=== PATIENT | female | born 1950 | race Caucasian/White ===

== ENCOUNTER 2017-12-15 05:05 | Inpatient (IN) | payer MEDICARE, BC ==
[2017-12-12 10:06] LABS: INR 1.22 (0.85-1.17)
[2017-12-12 10:07] LABS: APTT 38.8 SECONDS (22.8-39.4)
[2017-12-12 10:09] LABS: HEMATOCRIT 24.8 % (36.0-48.0); HEMOGLOBIN 6.8 g/dL (12-16); MCH 26.9 pg (26.0-34.0); MCHC 27.4 g/dL (31.0-37.0); RBC 2.53 10x6/uL (4.00-5.40); RDW 26.3 % (11.5-14.5)
[2017-12-12 10:10] LABS: PLATELET COUNT 42 10x3/uL (130-400)
[2017-12-12 12:09] LABS: NEUTROPHILS 17 % (40-80); PLATELET ESTIMATE DECREASED
[2017-12-12 12:10] LABS: BASOPHILS 1 % (0-2); EOSINOPHILS 8 % (0-7)
[2017-12-12 12:19] LABS: WBC 185.4 10x3/uL (4.8-10.8)
[~2017-12-15] VITALS: Ht 170.2 cm; Wt 104.1 kg
[2017-12-15] VITALS (20 sets, daily range): BP systolic 110–147; BP diastolic 63–98; BMI 22.3
--- NOTE | ~2017-12-15 | CN ---
PATIENT NAME:ALLI MORRIS MEDICAL RECORD: [id number] : 48 LOCATION:[facility].2307 ADMIT DATE: 12/15/17 ACCOUNT: [id number] CONSULTING PHYSICIAN: ROSANA MURPHY MD REFERRING PHYSICIAN: MISSY SANABRIA MD DATE OF CONSULTATION: 12/23/2017 HISTORY: Ms. Morris is a 67-year-old female in ICU, intubated for several days, who called me to see her for tongue swelling. PHYSICAL EXAMINATION: GENERAL: She is intubated and sedated. HEENT: Her face is normal symmetric, no edema. Her tongue sticking out. She is intubated orotracheally and tongue protruding slightly and looks enlarged. NECK: Has no masses, no adenopathy. On exam of the oral cavity, when you look she has not really biting down hard, but her tongue is protruding slightly and her tongue and the ET tube and upper teeth are pressing against her tongue causing edema of the tip of the tongue, but looking in the mouth, floor of the mouth, roof of the mouth, mucosal surfaces all looked normal. The body of her tongue and oral cavity and the base of the tongue is normal, both visually and to palpation. She just have some distal edema of the tip of the tongue from extruding it slightly and slight pressure from her upper and lower teeth just where her tongue is resting. There is no hematoma or significant problem that would suggest angioedema or some other tongue problem, it does not look like it is going to interfere with her airway and possibly when she is extubated. There was more room for tongue and oral cavity can rest behind her teeth. I would not recommend anything other than keeping the tongue moist and just try to physically going to adjust her biting her tongue occasionally. I did that and it stayed in her mouth behind upper teeth for some time. TRANSINT:[id number] Voice Confirmation ID: [id number] DOCUMENT ID: [id number] ROSANA MURPHY MD at 1357 CC: [id number] DICTATION DATE: 12/23/17 1516 DYER ASSISTANT: 12/23/17 1556 DIS IN 12/23/17 [id number] [place] [address]
--- NOTE | ~2017-12-15 | CN ---
PATIENT NAME:ALLI MORRIS MEDICAL RECORD: [id number] : 48 LOCATION:[facility]7 ADMIT DATE: 12/15/17 ACCOUNT: [id number] CONSULTING PHYSICIAN: MARIA LUISA ARITA MD REFERRING PHYSICIAN: MISSY SANABRIA MD DATE OF CONSULTATION: 12/18/2017 HISTORY OF PRESENT ILLNESS: A 67-year-old female with no known cardiovascular history, admitted for splenectomy. 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 Postoperatively, she has been intubated, on a ventilator. Chest x-ray showed diffuse reticular nodular pattern. Echocardiographic study subsequently showed LV function mildly reduced at 40% to 45%, somewhat tachycardic, and anemic. We are seeing concerning cardiovascular status. PAST MEDICAL HISTORY: Includes a history of myelodysplasia. ALLERGIES: CELEBREX. MEDICATIONS: Prior to admission included amoxicillin 500 t.i.d., methotrexate 15 ____ Friday, Jakafi 5 mg b.i.d., ____ q.h.s. SOCIAL HISTORY: Unobtainable due to the patient factors. REVIEW OF SYSTEMS: Unobtainable due to the patient factors. PHYSICAL EXAMINATION: GENERAL: Intubated and sedated, no acute distress. VITAL SIGNS: Pulse currently 110, blood pressure 112/62. HEENT: Normocephalic, atraumatic. NECK: No bruits noted. HEART: Tachycardic. I do not hear a gallop. LUNGS: Actually fairly good air excursion at this point. ABDOMEN: Soft, nontender. EXTREMITIES: There are 1+ pulses, pulses 2+ edema. DIAGNOSTIC DATA: ECG prior to surgery showed low voltage, no acute changes. IMPRESSION: Cardiomyopathy with EF 40%, multifactorial, could be secondary to current stressors, would not use Dobutrex at this point secondary to underlying tachycardia and possibly to exacerbate tachyarrhythmias. We will add low dose digoxin IV. Significant third spacing, a part of this again secondary to anemia, hypoalbuminemia. Thank you for the consultation. We will follow with you. TRANSINT:[id number] Voice Confirmation ID: [id number] DOCUMENT ID: [id number] CONSULT REPORT [id number] DARRENMARK MENAMARIA LUISA ARANDA MD at 1132 CC: [id number] DICTATION DATE: 12/18/17 1434 BLUNGER: 12/18/178 ADM IN [facility] [address] [id number]
--- NOTE | ~2017-12-15 | EC ---
PATIENT:ALLI MORRIS DATE OF SERVICE: 12/15/17 SEX: F MEDICAL RECORD: [id number] DATE OF : 48 LOCATION:[facility] D.230 AGE OF PATIENT: 67 ADMISSION DATE: 12/15/17 REFERRING PHYSICIAN: INTERPRETING PHYSICIAN: MINH SMART MD ECHOCARDIOGRAM REPORT ECHO CHARGES 4 ECHO COMPLETE Date: 12/17 CLINICAL DIAGNOSIS: ECHOCARDIOGRAPHIC MEASUREMENTS (adult normal given) AC root (d.<3.7cm) 3.0 cm LV Septum d (<1.2 cm> 0.6 cm Valve Excursion 1.8 cm LV Septum (systole) 1.1 cm Left Atria (s.<4.0cm> 3.3 cm LVPW d(<1.2cm) 0.8 cm RV (d.<2.3cm) 2.2 cm LVPW (sytole) 1.6 cm LV diastole(<5.6CM) 5.5 cm MV E-F(>70mm/sec) cm LV systole 3.4 cm LVOT Diameter 1.9 cm MV exc.(>10mm) cm Est.ejection fraction (50-75%) % DOPPLER: LVIT cm/sec A 84.0 cm/sec E 96.0 cm/sec LA cm/sec RVSP 44.4 mmHg LVOT 157 cm/sec AOP1/2T m/s Asc. Ao 203 cm/sec RVOT 83.0 cm/sec RA cm/sec PA 129 cm/sec AV Gradient Peak 17.0 mmHg AV Mean 8.5 mmHg AV Area 2.1 cm MV Gradient Peak 4.2 mmHg MV Mean 2.0 mmHg MV Area cm COMMENTS: Right Of Way Supervisor: 1 MANN ZIMMEROE Concrete Carpenter: 1 Dr. Smart TAPE# PACS Pericardial Effusion N DATE OF SERVICE: FINDINGS: 1. Left ventricular chamber size is within normal limits. Left ventricular systolic function is mildly depressed. Overall ejection fraction 40%. 2. Left atrium, right atrium, and right ventricular chamber sizes are within normal limits. 3. Valvular structures have normal structure and motion. 4. Doppler interrogation only reveals trace tricuspid regurgitation. No other valvular insufficiency or stenosis. Pulmonary systolic pressure is estimated 44 ECHOCARDIOGRAM REPORT [id number] ALLI MORRIS mmHg. 5. No evidence of pericardial effusion or left ventricular thrombus. TRANSINT:[id number] Voice Confirmation ID: [id number] DOCUMENT ID: [id number] MINH SMART MD at 0956 CC: [id number] DICTATION DATE: 12/17/17 1215 PRELOAD SUPERVISOR: 12/17/17 1430 ADM IN [id number] [address] [id number]
--- NOTE | ~2017-12-15 | OP ---
PATIENT NAME: ALIL MORRIS MEDICAL RECORD: [id number] :48 LOCATION:[facility] D.2307 ADMISSION DATE:12/15/17 SURGEON: MISSY SANABRIA MD DATE OF OPERATION: 12/15/2017 PREOPERATIVE DIAGNOSES: Myelodysplastic syndrome with splenomegaly. POSTOPERATIVE DIAGNOSES: Myelodysplastic syndrome with splenomegaly. PROCEDURE: Attempted laparoscopic splenectomy with conversion to open splenectomy. SURGEON: Missy Sanabria MD. MINCEMEAT MAKER: None. BLOOD LOSS: 250 cc. DRAINS: Times 1 (19 round fully fluted drain). The risks, possible complications, and alternatives to the procedure were explained to the patient. She elects to proceed. OPERATIVE COURSE: The patient was conveyed to the operating room electively on 12/15/2017. General anesthesia was induced by the anesthesia staff. The patient was placed in the full lateral decubitus position with the left side up. We then bent the bed in the center in order to elevate her costal margin. The abdomen was sterilely prepped and draped. An incision was accomplished within the umbilicus. Sharp dissection was carried down to the level of the periumbilical fascia, which was cleaned sharply of surrounding connective tissue. Then, 0 Vicryl sutures were placed in either side of the midline. The midline fascia was incised. A 5-mm trocar was inserted. CO2 insufflation was begun. Utilizing a television camera, some laparoscopic photographs were obtained. The patient had a huge splenomegaly and the tip of the spleen was almost to the level of the pelvis. Two more trocars were inserted. These were 5-mm trocars. One of this was inserted anterior to the anterior superior iliac spine and the other was inserted in the suprapubic area. During insertion of the trocars, there was no apparent injury to the bowels, any intraperitoneal or retroperitoneal structures. I began to dissect up along the short gastrics and I took down the short gastrics with the laparoscopic EnSeal device. It became obvious that I was not going to be able to remove the spleen laparoscopically. I rolled the spleen medially and identified an abscess between the splenic flexure of the colon and the spleen. I converted to an open procedure. The trocars were removed. A left subcostal incision was accomplished. I entered the peritoneal cavity sharply. I continued my dissection along the hilum of the spleen, dividing the short gastrics. I then took down the renocolic ligament and fully release the splenic flexure of the colon. Couple seromyotomies were closed with imbricating 3-0 Vicryl sutures. There was no full thickness injury to the colon. I incised the splenic reflection to the diaphragm. Some of the spleen was heavily adherent to the diaphragm and through blunt dissection, these 2 structures were . OPERATIVE REPORT [id number] ALLI MORRIS I then dissected into the hilum of the spleen. The hilum of the spleen was divided along with the splenic artery and splenic vein utilizing the Endo-MITCHEL type stapler with vascular loads. I completed the splenectomy by dividing the splenic attachments to the diaphragm superiorly. The spleen was then removed. There was some pretty significant bleeding from remnants of the spleen to the diaphragm. These were scraped off. There was still bleeding from where the diaphragm of the spleen had been inflamed and adherent. This was controlled with the argon plasma generalist. I irrigated and aspirated. There was no further bleeding. Tal was added to the diaphragm for additional hemostasis and then Nu-Knit was added to the retroperitoneum and then on to the raw surface of the diaphragm. A 19-Georgian fully fluted drain was brought out through a stab incision in the left lower quadrant. The umbilicus was closed with 0 Vicryl sutures. The single trocar site was closed with an intracuticular 3-0 Vicryl. The drain was sutured to the skin with 2-0 nylon. The left subcostal incision was closed in layers. The transversus abdominis muscle and the peritoneum was closed with running #1 Vicryls. The internal oblique was closed with running #1 Vicryls. The external oblique muscle was closed with running #1 Vicryls. The subdermis was approximated with interrupted 3-0 Vicryls. The skin was approximated with a running intracuticular 3-0 Vicryl and then Dermabond. The patient was then conveyed to the intensive care unit while being mechanically ventilated. TRANSINT:[id number] Voice Confirmation ID: [id number] DOCUMENT ID: [id number] MISSY SANABRIA MD at 1158 CC: LIANET RODRIGUEZ MD [id number] DICTATION DATE: 12/15/17 1222 MANAGER CHINESE: 12/15/17 1255 DIS IN 12/23/17 [facility] [address] [place] [address]
[~2017-12-15 05:05] MED LIST: ACETAMINOPHEN325 MG PO; AMOXICILLIN500 M1 PO; ELAVIL25 MG PO; FOLIC ACID1 MG PO; JAKAFI5 MG PO; METHOTREXATE2.5 MG PO
[2017-12-15 13:14] LABS: HEMATOCRIT 26.9 % (36.0-48.0); HEMOGLOBIN 7.8 g/dL (12-16); MCH 28.1 pg (26.0-34.0); MCV 96.8 fL (80.0-100.0); PLATELET COUNT 76 10x3/uL (130-400); RBC 2.78 10x6/uL (4.00-5.40); RDW 21.9 % (11.5-14.5)
[2017-12-15 13:16] LABS: WBC 206.1 10x3/uL (4.8-10.8)
[2017-12-15 13:47] LABS: ANISOCYTOSIS 1+; EOSINOPHILS 9 % (0-7); LYMPHOCYTES 11 % (15-50); MONOCYTES 1 % (2-11); NEUTROPHILS 24 % (40-80); PLATELET ESTIMATE DECREASED; POLYCHROMASIA 1+
[2017-12-15 16:59] LABS: HEMATOCRIT 25.2 % (36.0-48.0); HEMOGLOBIN 7.9 g/dL (12-16); MCH 28.5 pg (26.0-34.0); MCHC 31.3 g/dL (31.0-37.0); PLATELET COUNT 138 10x3/uL (130-400); RBC 2.77 10x6/uL (4.00-5.40); RDW 22.3 % (11.5-14.5); WBC 198.3 10x3/uL (4.8-10.8)
[2017-12-15 18:58] LABS: EOSINOPHILS 10 % (0-7); LYMPHOCYTES 8 % (15-50); MONOCYTES 4 % (2-11); NEUTROPHILS 37 % (40-80)
[2017-12-15 18:59] LABS: PLATELET ESTIMATE NORMAL
[2017-12-16] VITALS (25 sets, daily range): BP systolic 96–130; BP diastolic 52–83; BMI 22.4
[2017-12-16 05:22] LABS: INR 1.2 (0.85-1.17); PROTIME 14.8 SECONDS (11.6-15.0)
[2017-12-16 05:23] LABS: APTT 33.8 SECONDS (22.8-39.4)
[2017-12-16 05:40] LABS: ALBUMIN 1.6 g/dL (3.4-5.0); ALKALINE PHOSPHATASE 196 U/L (46-116); ALT (SGPT) 13 U/L (10-68); CALC OSMOLALITY 271 mosm/kg (275-300); CALCIUM 7.2 mg/dL (8.5-10.1); CARBON DIOXIDE 23.7 mmol/L (21.0-32.0); CHLORIDE - SERUM 105 mmol/L (98-107); CREATININE - SERUM 0.8 mg/dL (0.6-1.3); GLUCOSE 101 mg/dL (74-106); PHOSPHOROUS 3.8 mg/dL (2.5-4.9); PROTEIN - SERUM 5.5 g/dL (6.4-8.2); SODIUM 137 mmol/L (136-145); UREA NITROGEN 8 mg/dL (7-18); eGFR NON AFRICAN AMERICAN 75 mL/min (90-120)
[2017-12-16 05:41] LABS: POTASSIUM - SERUM 2.9 mmol/L (3.5-5.1)
[2017-12-16 05:42] LABS: HEMATOCRIT 32.1 % (36.0-48.0); MCH 29.3 pg (26.0-34.0); MCHC 31.2 g/dL (31.0-37.0); MCV 94.1 fL (80.0-100.0); PLATELET COUNT 93 10x3/uL (130-400); RBC 3.41 10x6/uL (4.00-5.40); RDW 22.9 % (11.5-14.5)
[2017-12-16 07:48] LABS: EOSINOPHILS 10 % (0-7); LYMPHOCYTES 2 % (15-50); MONOCYTES 10 % (2-11); NEUTROPHILS 28 % (40-80)
[2017-12-16 07:55] LABS: PLATELET ESTIMATE DECREASED
[2017-12-16 07:56] LABS: ANISOCYTOSIS OCC; ROULEAUX OCC
[2017-12-16 07:59] LABS: WBC 169.9 10x3/uL (4.8-10.8)
[2017-12-16 13:45] LABS: HEMATOCRIT 30.1 % (36.0-48.0); HEMOGLOBIN 9.2 g/dL (12-16)
[2017-12-16 17:56] LABS: EOS BF 3 %; MACROPHAGES BF 11 %; MESOTHELIALS BF 6 %; NEUT - BF 57 %
[2017-12-16 19:01] LABS: HEMATOCRIT 28.3 % (36.0-48.0); HEMOGLOBIN 8.5 g/dL (12-16)
[2017-12-17] VITALS (24 sets, daily range): BP systolic 95–116; BP diastolic 52–80
[2017-12-17 01:38] LABS: HEMATOCRIT 29.8 % (36.0-48.0); HEMOGLOBIN 8.8 g/dL (12-16)
[2017-12-17 06:12] LABS: HEMATOCRIT 32.5 % (36.0-48.0); HEMOGLOBIN 9.9 g/dL (12-16); MCH 29.1 pg (26.0-34.0); MCHC 30.5 g/dL (31.0-37.0); MCV 95.6 fL (80.0-100.0); PLATELET COUNT 60 10x3/uL (130-400); RDW 22.5 % (11.5-14.5)
[2017-12-17 07:01] LABS: ALBUMIN 1.6 g/dL (3.4-5.0); BILIRUBIN - TOTAL 0.95 mg/dL (0.2-1.3); CARBON DIOXIDE 18.7 mmol/L (21.0-32.0); PROTEIN - SERUM 5.8 g/dL (6.4-8.2)
[2017-12-17 07:16] LABS: ANION GAP 17.3 mmol/L (8-16); CALCIUM 6.9 mg/dL (8.5-10.1); CREATININE - SERUM 1.2 mg/dL (0.6-1.3)
[2017-12-17 07:21] LABS: EOSINOPHILS 12 % (0-7); LYMPHOCYTES 10 % (15-50); MONOCYTES 10 % (2-11); NEUTROPHILS 18 % (40-80)
[2017-12-17 07:22] LABS: WBC 172.6 10x3/uL (4.8-10.8)
[2017-12-17 07:23] LABS: PLATELET ESTIMATE DECREASED
[2017-12-17 07:24] LABS: ANISOCYTOSIS OCC
[2017-12-17 11:20] LABS: ANA REFLEX - DIRECT Negative (Negative)
[2017-12-17 12:31] LABS: HEMATOCRIT 30.9 % (36.0-48.0); HEMOGLOBIN 9.3 g/dL (12-16)
[2017-12-17 13:21] LABS: FUNGUS STAIN Final report (())
[2017-12-17 19:11] LABS: ACID FAST SMEAR Negative (()); AFB SPECIMEN PROCESSING Concentration (())
[2017-12-17 19:30] LABS: HEMATOCRIT 29.4 % (36.0-48.0); HEMOGLOBIN 8.9 g/dL (12-16)
[2017-12-18] VITALS (24 sets, daily range): BP systolic 91–163; BP diastolic 51–89
[2017-12-18 03:11] LABS: ANGIOTENSIN CONVERTING ENZYME 70 U/L (14-82)
[2017-12-18 05:39] LABS: HEMATOCRIT 34.3 % (36.0-48.0); HEMOGLOBIN 10.4 g/dL (12-16); MCH 29.1 pg (26.0-34.0); MCHC 30.3 g/dL (31.0-37.0); MCV 96.1 fL (80.0-100.0); PLATELET COUNT 39 10x3/uL (130-400); RBC 3.57 10x6/uL (4.00-5.40); RDW 22.2 % (11.5-14.5); WBC 146.7 10x3/uL (4.8-10.8)
[2017-12-18 05:46] LABS: ALBUMIN 1.2 g/dL (3.4-5.0); BILIRUBIN - TOTAL 0.93 mg/dL (0.2-1.3); CARBON DIOXIDE 20.4 mmol/L (21.0-32.0); CREATININE - SERUM 1.1 mg/dL (0.6-1.3); PHOSPHOROUS 3.5 mg/dL (2.5-4.9); PROTEIN - SERUM 5.2 g/dL (6.4-8.2)
[2017-12-18 06:04] LABS: ANION GAP 14.1 mmol/L (8-16); POTASSIUM - SERUM 3.5 mmol/L (3.5-5.1)
[2017-12-18 08:04] LABS: EOSINOPHILS 4 % (0-7); LYMPHOCYTES 4 % (15-50); MONOCYTES 8 % (2-11); NEUTROPHILS 23 % (40-80); PLATELET ESTIMATE DECREASED
[2017-12-18 08:05] LABS: ANISOCYTOSIS OCC; POLYCHROMASIA OCC; SMUDGE CELLS OCC; TOXIC GRANULATION OCC
[2017-12-18 16:17] LABS: ANCA - ANTIMYELOPEROXIDASE <9.0 U/mL (0.0-9.0); ANCA - ANTIPROTEINASE 3 <3.5 U/mL (0.0-3.5); ANCA - ATYPICAL <1:20 titer (Neg:<1:20); ANCA - CYTOPLASMIC <1:20 titer (Neg:<1:20); ANCA - PERINUCLEAR <1:20 titer (Neg:<1:20)
[2017-12-19] VITALS (24 sets, daily range): BP systolic 95–132; BP diastolic 6–80
[2017-12-19 03:10] LABS: MYCOPLASMA PNEUMO IGG <100 U/mL (0-99)
[2017-12-19 04:57] LABS: HEMATOCRIT 30.6 % (36.0-48.0); HEMOGLOBIN 9.2 g/dL (12-16); MCH 28.8 pg (26.0-34.0); MCHC 30.1 g/dL (31.0-37.0); MCV 95.6 fL (80.0-100.0); PLATELET COUNT 30 10x3/uL (130-400); WBC 176.1 10x3/uL (4.8-10.8)
[2017-12-19 05:29] LABS: BASOPHILS 2 % (0-2); EOSINOPHILS 3 % (0-7); LYMPHOCYTES 4 % (15-50); MONOCYTES 9 % (2-11); NEUTROPHILS 19 % (40-80); PLATELET ESTIMATE DECREASED
[2017-12-19 05:30] LABS: ANISOCYTOSIS OCC; PLATELET MORPHOLOGY NORMAL PLT MORPH; POLYCHROMASIA OCC; TOXIC GRANULATION OCC
[2017-12-19 05:36] LABS: ANION GAP 16.8 mmol/L (8-16); CALCIUM 7.5 mg/dL (8.5-10.1); CARBON DIOXIDE 17.7 mmol/L (21.0-32.0); PHOSPHOROUS 3.1 mg/dL (2.5-4.9); POTASSIUM - SERUM 3.5 mmol/L (3.5-5.1)
[2017-12-20] VITALS (22 sets, daily range): BP systolic 107–133; BP diastolic 55–70
[2017-12-20 06:14] LABS: ALBUMIN 1.9 g/dL (3.4-5.0); ANION GAP 17.4 mmol/L (8-16); BILIRUBIN - TOTAL 1.02 mg/dL (0.2-1.3); CALCIUM 7.9 mg/dL (8.5-10.1); CARBON DIOXIDE 17.6 mmol/L (21.0-32.0); PROTEIN - SERUM 5.5 g/dL (6.4-8.2)
[2017-12-20 06:19] LABS: CREATININE - SERUM 1.6 mg/dL (0.6-1.3)
[2017-12-20 07:28] LABS: HEMOGLOBIN 8.8 g/dL (12-16); WBC 139.6 10x3/uL (4.8-10.8)
[2017-12-20 07:29] LABS: MCH 29.3 pg (26.0-34.0); MCHC 30.3 g/dL (31.0-37.0); MCV 96.7 fL (80.0-100.0); PLATELET COUNT 46 10x3/uL (130-400); RDW 22.7 % (11.5-14.5)
[2017-12-20 07:32] LABS: PLATELET ESTIMATE DECREASED
[2017-12-20 07:33] LABS: EOSINOPHILS 4 % (0-7); LYMPHOCYTES 8 % (15-50); MONOCYTES 6 % (2-11); NEUTROPHILS 27 % (40-80)
[2017-12-20 14:04] LABS: APPEARANCE HAZY (CLEAR); BILIRUBIN NEGATIVE (NEGATIVE); COLOR YELLOW (YELLOW); GLUCOSE NEGATIVE (NEGATIVE); KETONE NEGATIVE (NEGATIVE); NITRITE NEGATIVE (NEGATIVE); PROTEIN 1+ mg/dL (NEGATIVE); UROBILINOGEN NORMAL (NORMAL)
[2017-12-20 14:12] LABS: BACTERIA MODERATE /hpf (NONE SEEN); EPITHELIAL CELLS 0-5 /hpf (0-5); GRANULAR CAST 0-5 /lpf (NONE SEEN); HYALINE CAST 0-5 /lpf (NONE SEEN); WHITE CELLS - URINE 0-5 /hpf (0-5)
[2017-12-20 14:13] LABS: AMORPHOUS SEDIMENT >1+ /lpf (NONE SEEN); WAXY CAST OCC /lpf (NONE SEEN)
[2017-12-20 15:55] LABS: PROTEIN - BODY FLUID 1.9 G/DL
[2017-12-20 16:12] LABS: VIRAL RESP. - ADENOVIRUS Negative (Negative); VIRAL RESP. - INFLUENZA A Negative (Negative); VIRAL RESP. - INFLUENZA B Negative (Negative); VIRAL RESP. - PARAINFLUENZA 1 Negative (Negative); VIRAL RESP. - PARAINFLUENZA 2 Negative (Negative); VIRAL RESP. - PARAINFLUENZA 3 Negative (Negative); VIRAL RESP. - RSV Negative (Negative)
[2017-12-20 17:20] LABS: EOS BF 20 %; MACROPHAGES BF 4 %; NEUT - BF 63 %
[2017-12-21] VITALS (26 sets, daily range): BP systolic 94–128; BP diastolic 50–64
[2017-12-21 04:04] LABS: HEMATOCRIT 29.5 % (36.0-48.0); HEMOGLOBIN 9.3 g/dL (12-16); MCH 29.4 pg (26.0-34.0); MCHC 31.5 g/dL (31.0-37.0); MCV 93.4 fL (80.0-100.0); RBC 3.16 10x6/uL (4.00-5.40)
[2017-12-21 04:05] LABS: PLATELET COUNT 43 10x3/uL (130-400); WBC 140.4 10x3/uL (4.8-10.8)
[2017-12-21 04:11] LABS: EOSINOPHILS 4 % (0-7); LYMPHOCYTES 9 % (15-50); MONOCYTES 4 % (2-11); NEUTROPHILS 23 % (40-80); PLATELET ESTIMATE DECREASED
[2017-12-21 04:13] LABS: ANISOCYTOSIS OCC; CRENATED CELLS OCC; POLYCHROMASIA OCC; TOXIC GRANULATION OCC
[2017-12-21 04:15] LABS: BILIRUBIN - TOTAL 1.07 mg/dL (0.2-1.3); CALCIUM 7.9 mg/dL (8.5-10.1); CARBON DIOXIDE 18.8 mmol/L (21.0-32.0); CREATININE - SERUM 2.1 mg/dL (0.6-1.3); POTASSIUM - SERUM 3.8 mmol/L (3.5-5.1); PROTEIN - SERUM 5.3 g/dL (6.4-8.2); VANCOMYCIN - TROUGH 25.7 ug/mL (10.0-20.0)
[2017-12-22] VITALS (24 sets, daily range): BP systolic 90–117; BP diastolic 47–65; Ht 170.2 cm; Wt 104.1 kg
[2017-12-22 03:42] LABS: HEMATOCRIT 28.2 % (36.0-48.0); HEMOGLOBIN 8.9 g/dL (12-16); MCH 29.6 pg (26.0-34.0); MCHC 31.6 g/dL (31.0-37.0); MCV 93.7 fL (80.0-100.0); RBC 3.01 10x6/uL (4.00-5.40); RDW 22.1 % (11.5-14.5); WBC 151.4 10x3/uL (4.8-10.8)
[2017-12-22 03:43] LABS: PLATELET COUNT 24 10x3/uL (130-400)
[2017-12-22 03:58] LABS: ALBUMIN 2.1 g/dL (3.4-5.0); BILIRUBIN - TOTAL 1.35 mg/dL (0.2-1.3); CALCIUM 7.9 mg/dL (8.5-10.1); CARBON DIOXIDE 18.6 mmol/L (21.0-32.0); CREATININE - SERUM 2.5 mg/dL (0.6-1.3); PROTEIN - SERUM 5.4 g/dL (6.4-8.2); VANCOMYCIN - RANDOM 23.2 ug/mL (10.0-20.0)
[2017-12-22 04:01] LABS: ANION GAP 18.1 mmol/L (8-16); POTASSIUM - SERUM 4.7 mmol/L (3.5-5.1)
[2017-12-22 04:11] LABS: CREATININE - URINE 59.4 mg/dL (30-125)
[2017-12-22 04:16] LABS: EOSINOPHILS 9 % (0-7); MONOCYTES 5 % (2-11); NEUTROPHILS 25 % (40-80)
[2017-12-22 04:17] LABS: PLATELET ESTIMATE DECREASED
[2017-12-22 04:43] LABS: PROTEIN - URINE 572.2 mg/dL (0.0-11.9)
[2017-12-22 13:14] LABS: FUNGAL - ASP FLAVUS Negative (Neg:<1:1); FUNGAL - ASP NIGER Negative (Neg:<1:1); FUNGAL - ASPER FUMIGATUS Negative (Neg:<1:1)
[2017-12-22 19:13] LABS: APPEARANCE CLEAR (CLEAR); BILIRUBIN NEGATIVE (NEGATIVE); COLOR YELLOW (YELLOW); GLUCOSE NEGATIVE (NEGATIVE); KETONE NEGATIVE (NEGATIVE); NITRITE NEGATIVE (NEGATIVE); PROTEIN 1+ mg/dL (NEGATIVE); UROBILINOGEN NORMAL (NORMAL)
[2017-12-22 19:14] LABS: BACTERIA MODERATE /hpf (NONE SEEN); EPITHELIAL CELLS 0-5 /hpf (0-5); RED CELLS - URINE 0-5 /hpf (0-5); WHITE CELLS - URINE 0-5 /hpf (0-5)
[2017-12-23] VITALS (17 sets, daily range): BP systolic 87–115; BP diastolic 45–66
[2017-12-23 04:26] LABS: HEMOGLOBIN 8.7 g/dL (12-16); MCH 29.5 pg (26.0-34.0); MCHC 31.1 g/dL (31.0-37.0); MCV 94.9 fL (80.0-100.0); PLATELET COUNT 16 10x3/uL (130-400); RBC 2.95 10x6/uL (4.00-5.40); RDW 22.1 % (11.5-14.5); WBC 143.7 10x3/uL (4.8-10.8)
[2017-12-23 04:37] LABS: ALBUMIN 2.2 g/dL (3.4-5.0); ANION GAP 18.4 mmol/L (8-16); BILIRUBIN - TOTAL 1.29 mg/dL (0.2-1.3); CARBON DIOXIDE 20.6 mmol/L (21.0-32.0); CREATININE - SERUM 2.9 mg/dL (0.6-1.3); MAGNESIUM - SERUM 2.1 mg/dL (1.8-2.4); PROTEIN - SERUM 5.5 g/dL (6.4-8.2); VANCOMYCIN - RANDOM 20.5 ug/mL (10.0-20.0)
[2017-12-23 04:38] LABS: PHOSPHOROUS 1.5 mg/dL (2.5-4.9)
[2017-12-23 04:45] LABS: EOSINOPHILS 10 % (0-7); LYMPHOCYTES 5 % (15-50); NEUTROPHILS 33 % (40-80)
[2017-12-23 04:46] LABS: PLATELET ESTIMATE DECREASED
[2017-12-23 12:18] LABS: OSMOLALITY - URINE 264 (())
[2017-12-23 15:31] LABS: ACID FAST SMEAR Negative (()); AFB SPECIMEN PROCESSING Concentration (())
[2017-12-23 18:47] LABS: AEROBE ID Final report (())
[2017-12-24 15:25] LABS: FUNGUS STAIN Final report (())
[2017-12-25 10:53] LABS: VIRAL - RESULT No virus isolated. (())
[2018-01-13 08:19] LABS: FUNGUS MYCOLOGY CULTURE Final report (())
[2018-01-19 10:12] LABS: FUNGUS MYCOLOGY CULTURE Final report (())
== END 2017-12-23 17:54 | DRG 799 ==
LOC: D.SDCHOLD 05:05 → D.ICU 05:05 → D.SDCHOLD 08:00 → D.ICU 12:49
PROVIDERS: Anesthesiology; Internal Medicine; Internal Medicine Hematology & Oncology; Internal Medicine Pulmonary Disease; Surgery
PROC: 0BH17EZ Insertion of Endotracheal Airway into Trachea, Via Natural or Artificial Opening (ICD-10-PCS; 2017-12-15)
PROC: 5A1955Z Respiratory Ventilation, Greater than 96 Consecutive Hours (ICD-10-PCS; principal; 2017-12-15 08:00)
PROC: 07TP0ZZ Resection of Spleen, Open Approach (ICD-10-PCS; 2017-12-15 08:00)
PROC: 0B9H8ZX Drainage of Lung Lingula, Via Natural or Artificial Opening Endoscopic, Diagnostic (ICD-10-PCS; 2017-12-16)
PROC: 0B9D8ZX Drainage of Right Middle Lung Lobe, Via Natural or Artificial Opening Endoscopic, Diagnostic (ICD-10-PCS; 2017-12-16)
PROC: 0W9B30Z Drainage of Left Pleural Cavity with Drainage Device, Percutaneous Approach (ICD-10-PCS; 2017-12-19)
DX: D73.5 Infarction of spleen (principal); J96.01 Acute respiratory failure with hypoxia; J13 Pneumonia due to Streptococcus pneumoniae; I50.21 Acute systolic (congestive) heart failure; D62 Acute posthemorrhagic anemia; J90 Pleural effusion, not elsewhere classified; J94.2 Hemothorax; E87.2 Acidosis; I42.9 Cardiomyopathy, unspecified; N17.9 Acute kidney failure, unspecified; D46.9 Myelodysplastic syndrome, unspecified; R16.1 Splenomegaly, not elsewhere classified; E88.09 Other disorders of plasma-protein metabolism, not elsewhere classified; D69.6 Thrombocytopenia, unspecified; E87.6 Hypokalemia; K21.9 Gastro-esophageal reflux disease without esophagitis; R34 Anuria and oliguria; H11.30 Conjunctival hemorrhage, unspecified eye